=== PATIENT | female | born 1995 | race Two or more races ===

== ENCOUNTER 2017-03-04 01:28 | Emergency (ER) | payer MEDICAID, OTHER ==
[~2017-03-04] VITALS: Ht 157.5 cm; Wt 68.0 kg
[2017-03-04 02:01] VITALS: BP 151/99
[2017-03-04] MEDS ORDERED: LORazepam 0.5 MG TAB ONE (04:34)
[2017-03-04] MEDS ORDERED: LORazepam 0.5 MG TAB PO ONE (04:45)
[2017-03-04] MEDS ORDERED: ONDANSETRON HCL 4 MG/2 ML VIAL IM ONE (05:30)
[2017-03-04] MEDS ORDERED: HYDROmorphone HCL 2 MG/ML VL IM ONE (05:30)
== END 2017-03-04 05:47 | disposition home or self-care (01) ==
LOC: ER 01:28
DX: S03.03XA Dislocation of jaw, bilateral, initial encounter (principal); X58.XXXA Exposure to other specified factors, initial encounter; Y93.89 Activity, other specified; Y99.8 Other external cause status; Y92.89 Other specified places as the place of occurrence of the external cause
CPT/HCPCS: 21480; 70486; 96372; 99284; J1170; J2405